=== PATIENT | female | born 1970 | race Caucasian/White ===

== ENCOUNTER 2021-11-09 06:02 | Day surgery (SDC) | payer OTHER ==
[~2021-11-09] VITALS: Ht 160 cm; Wt 67.0 kg
[2021-11-09] MEDS ORDERED: BENZOCAINE 20% 50 MCG/SPRAY 57 GM TP ONE (06:03)
[2021-11-09] MEDS ORDERED: LIDOCAINE 2% 5 ML JELLY TP ONE (06:03)
[2021-11-09] MEDS ORDERED: LIDOCAINE 4% 50 ML SOLUTION TP ONE (06:03)
[2021-11-09] MEDS ORDERED: SODIUM CHLORIDE 0.9% 1,000 ML ONE (06:15)
[2021-11-09] MEDS ORDERED: SODIUM CHLORIDE 0.9% 1,000 ML IV ONE (06:30)
[2021-11-09 07:12] LABS: COVID AG,FIA SOURCE NASOPHARYNGEAL
[2021-11-09] MEDS ORDERED: FentaNYL CITRATE PF 100 MCG/2 ML VIAL ONE (07:14)
[2021-11-09] MEDS ORDERED: MIDAZOLAM HCL 5 MG/ML VIAL ONE (07:14)
[2021-11-09] MEDS ORDERED: MethylPREDNISolone SOD SUCC 125 MG/2 ML VIAL IVP ONE (09:45)
[2021-11-09] MEDS ORDERED: MethylPREDNISolone SOD SUCC 125 MG/2 ML VIAL ONE (10:04)
[2021-11-09] MEDS ORDERED: OXYGEN THERAPY IH SCH (20:00)
== END 2021-11-09 13:20 | disposition home or self-care (01) ==
LOC: SURGERY 06:02
PROVIDERS: ATTEND Internal Medicine Critical Care Medicine
DX: J38.4 Edema of larynx (principal); B37.0 Candidal stomatitis; Z79.899 Other long term (current) drug therapy; Z98.890 Other specified postprocedural states
CPT/HCPCS: 31623; 31624; 71045; 87015; 87070; 87101; 87206; 87220; 87426; 88112; 88184; 88185; 88312; C9803; J2250; J2930; J3010; J7030; Z7610